=== PATIENT | female | born 1950 | race Two or more races ===

== ENCOUNTER 2022-10-19 16:48 | Emergency (ER) | payer OTHER ==
[~2022-10-19] VITALS: Ht 167.6 cm; Wt 113.4 kg
[2022-10-19] MEDS ORDERED: TYLENOL325 MG PO (17:23)
== END 2022-10-19 20:18 | disposition home or self-care (01) ==
LOC: ER 16:48
DX: M79.672 Pain in left foot (principal); Z88.2 Allergy status to sulfonamides; Z88.0 Allergy status to penicillin; Z88.7 Allergy status to serum and vaccine